=== PATIENT | male | born 1980 | race Two or more races ===

== ENCOUNTER → 2018-10-27 | Outpatient (CLI) | payer OTHER ==
[~2018-10-27] MED LIST: ACE3 PO; ASPI-663 PO; CYC10 PO; DOCU-416 PO; HYDR-653 PO; IBUP-1671 PO; IBUP400T13 PO; KET10 PO; NO RTN MEDS; OXYC-763 PO; PENI-22 PO
--- NOTE | 2018-10-27 09:04 | RADIOLOGY IMAGING REPORT ---
FACILITY: [facility] PATIENT NAME: Marc Edgar : 1980 MR: [id number] V: [id number] EXAM DATE: ORDERING PHYSICIAN: GANESH PITTMAN TECHNOLOGIST: Location: [facility] [place] Patient: Marc Edgar : 1980 Visit/Account:[id number] Date of Sevice: 10/27/2018 TESTICULAR HISTORY: Enlarged right testicle COMPARISON: None. FINDINGS: Testes: Right testicle measures 4.05 x 2.4 x 3.7 cm. The left testicle measures 5.08 x 1.91 x 3.64 c m. Symmetric and unremarkable blood flow documented by color and Duplex Doppler ultrasound. Period Epididymides: There is a large septated cystic structure along the superior aspect right-sided the sc rotal sac measuring approximately 5.2 cm in width and 2.2 cm in AP dimension. This may be within the head epididymis on the right or may be a loculated septated hydrocele. Head epididymis on the left measures 6 mm Blood flow is unremarkable in each epididymis by color Doppler ultrasound. Hydrocele: As above Varicocele: None. IMPRESSION: There is a large septated cystic structure along the superior aspect right side of the scrotal sac me asuring 5.2 x 2.2 cm. This may be within the head the epididymis on the right or may be a loculated septated hydrocele Report Dictated By: Ruma Allen MD at 10/27/2018 8:52 AM Report E-Signed By: Ruma Allen MD at 10/27/2018 9:00 AM WSN:[email or web address]
== END ==
LOC: US 04:24
PROVIDERS: ATTEND Urology
DX: N43.40 Spermatocele of epididymis, unspecified (principal); N50.89 Other specified disorders of the male genital organs
CPT/HCPCS: 76870

== ENCOUNTER 2018-10-30 00:11 | Day surgery (SDC) | payer OTHER ==
--- NOTE | 2018-10-28 00:18 | HISTORY AND PHYSICAL ---
DATE OF ADMISSION: October 30, 2018 CHIEF COMPLAINT Right spermatocele and desiring sterilization. HISTORY OF PRESENT ILLNESS Patient is a 38-year-old male who originally presented to the urology clinic in early October with a several-week history of right testicular swelling. Physical exam revealed this to be a soft mass above the right testis. His urinalysis was normal. The mass measured approximately 5 cm and he had mild discomfort on exam. The patient was also considering bilateral vasectomy. He was but had children and is in a steady relationship. He was given a vas pamphlet, consent and instructions, and set up for a testicular ultrasound. He returned to the clinic on the of this month. His testicular ultrasound confirmed this to be a 5.2 x 2.2 area of septated cystic mass at the head of the right epididymis, consistent with a spermatocele. The films were discussed, and the patient desired surgical excision. After again explaining vasectomy, he also desires permanent sterilization during the concomitant procedure. PAST MEDICAL HISTORY None. PAST SURGICAL HISTORY None. CURRENT MEDICATIONS None. ALLERGIES No known drug allergies. FAMILY HISTORY Noncontributory. REVIEW OF SYSTEMS Patient denies chest pain, shortness of breath, nausea, vomiting, fever, chills, gross hematuria, history of urinary tract infections, kidney stones, or bleeding disorder. PHYSICAL EXAMINATION GENERAL: Patient is a well-developed, well-nourished male in no acute distress. HEENT: Normocephalic, atraumatic. CHEST: Clear to auscultation bilaterally. CARDIOVASCULAR: Regular rate and rhythm. ABDOMEN: Soft, nontender. No masses are palpated. GENITOURINARY: Deferred to the OR. EXTREMITIES: Without clubbing, cyanosis, or edema. NEUROLOGIC: Nonfocal. IMPRESSION A 38-year-old male with a 5 cm spermatocele on the right side, who also currently desires a vasectomy. PLAN We will perform right spermatocelectomy with bilateral vasectomy. [place]
[2018-10-28 16:48] LABS: PLATELET COUNT, AUTOMATED 321 K/uL (150-450)
[~2018-10-30] VITALS: Ht 154.9 cm; Wt 66.7 kg
[~2018-10-30 00:11] MED LIST changes: -DOCU-416 PO; -HYDR-653 PO; -IBUP-1671 PO
[2018-10-30] MEDS ORDERED: LIDOCAINE/SOD BICARB 8.4% SYR ID ONE (13:10)
[2018-10-30] MEDS ORDERED: NORMOSOL R SOLN(*) 1000 ML BAG 1,000 ML IV PRN (13:10)
[2018-10-30] MEDS ORDERED: FAMOTIDINE 20 MG TAB PO ONE (13:10)
[2018-10-30] MEDS ORDERED: MIDAZOLAM 2 MG/2 ML VIAL IVP PRN (13:10)
[2018-10-30] MEDS ORDERED: fentaNYL CITR 100 MCG/2 ML AMP ONE ×2 (13:10→15:10)
[2018-10-30] MEDS ORDERED: ceFAZolin(*) 1 GM VIAL 1 GM in NS(*) 0.9% 100 ML ADDVANT BAG 100 ML IVPB ONE (13:10)
[2018-10-30] MEDS ORDERED: ceFAZolin(*) 1 GM VIAL 1 GM, GENTAMICIN(*) 80 MG/2 ML VIAL 60 MG in NS 0.9% IRRIGATION ... IR ONE (13:10)
[2018-10-30] MEDS ORDERED: LIDOCAINE MPF 1% 5 ML VIAL ONE (13:11)
[2018-10-30] MEDS ORDERED: PROPOFOL EMUL(*) 10MG/ML 20 ML 20 ML ONE (13:11)
[2018-10-30 13:21] VITALS: BP 126/69
[2018-10-30] MEDS ORDERED: ROPIVACAINE 0.2% 20 ML VIAL ONE (13:45)
[2018-10-30] MEDS ORDERED: DEXAMETHASONE SOD 4 MG/ML VIAL ONE (14:11)
[2018-10-30] MEDS ORDERED: ONDANSETRON 4 MG/2 ML VIAL ONE (14:14)
[2018-10-30] MEDS ORDERED: KETOROLAC 30 MG/ML VIAL ONE (15:24)
[2018-10-30 16:10] VITALS: BP 102/66
[2018-10-30 16:12] VITALS: BP 114/73
[2018-10-30] MEDS ORDERED: IBUP-1671 PO (16:32)
[2018-10-30] MEDS ORDERED: HYDR-653 PO (16:32)
[2018-10-30] MEDS ORDERED: DOCU-416 PO (16:34)
--- NOTE | 2018-10-30 16:45 | NUR ---
RN BEDSIDE WITH PT. PT REPORTS READY FOR DISCHARGE. PAIN TOLERABLE. ORTHOSTATIC VITALS WNL. TOLERATING PO INTAKE. ALLOWED PT. TO DRESS. ASSISTED/EDUCATED PT. WITH SCROTAL SUPPORT. PT. ABLE TO AMBULATE TO RESTROOM WITHOUT ISSUES.
[2018-10-30] MEDS ORDERED: APAP/HYDROCODONE 325/5 TAB ONE (16:53)
--- NOTE | 2018-10-30 16:55 | NUR ---
1612 SBAR HAND OFF TO SELF, 1616 ALLOWED TO DRESS TOP HALF WHILE SITTING IN BED, PT D/C'D FROM IV TUBING AT 1630 UPDATED PT'S PARENTS AND KIDS IN WAITING ROOM, NAUSEA RESOLVED 1645 SBAR HANDOFF TO Roni HALL RN
--- NOTE | 2018-10-30 17:00 | NUR ---
PT. GIVEN PO NORCO FOR PAIN MANAGEMENT POST AMBULATION. EDUCATED ON NORCO AND INSTRUCTED ON HOW TO TAKE MEDICATION.
--- NOTE | 2018-10-30 17:10 | NUR ---
DISCHARGE INSTRUCTIONS REVIEWED WITH FAMILY.
--- NOTE | 2018-10-31 01:46 | OPERATIVE REPORT 1 ---
EVENT DATE: October 30, 2018 SURGEON: Isaac Bustillos MD ANESTHESIOLOGIST: Rene Farrar MD ANESTHESIA: General. PREOPERATIVE DIAGNOSIS 1. Right spermatocele. 2. Desiring sterilization. POSTOPERATIVE DIAGNOSIS 1. Right spermatocele. 2. Desiring sterilization. PROCEDURE PERFORMED 1. Right spermatocelectomy. 2. Bilateral vasectomy. ESTIMATED BLOOD LOSS 10 mL. INTRAVENOUS FLUIDS Crystalloid. DRAINS None. COMPLICATIONS None. SPECIMENS Bilateral vas specimens and spermatocele for permanent analysis. CONDITION Patient taken to recovery room awake and in stable condition. STATEMENT OF MEDICAL NECESSITY Patient is a 38-year-old male who had presented with right testicular swelling and was noted to have a 5 x 2 cm spermatocele on physical exam, which was confirmed by ultrasound. Patient also desires permanent sterilization, and after discussion, he has elected to undergo right spermatocelectomy with bilateral vasectomy. The associated risks and benefits were explained, including damage to testes, nerves, adjacent structures, bleeding, infection, postoperative discomfort including post-vas pain syndrome, vasectomy recanalization with vas failure, and need for secondary procedure. Operative consent is signed and on the chart. DESCRIPTION OF PROCEDURE Patient was brought to the operating room after general anesthetic was obtained. He was placed supine on the operating room table and prepped and draped sterilely. At this point, a 3 cm right hemiscrotal mid incision was made from the medium raphe out laterally with the #10 blade knife. This was taken down through the dartos with electrocautery, and the testis was encountered and delivered through the incision with the surrounding tunica vaginalis. The tunica vaginalis was opened and the testis inspected. A small appendix testis was fulgurated. The testis itself appeared normal. There was a large spermatocele involving most of the body and head of the right epididymis. No other abnormalities were noted. At this point, the tunica albuginea between the testis and head of the epididymis was incised, and dissection was taken out in this fascial plane to dissect the spermatocele off the surface of the testis and body of the epididymis. Both sharp and blunt dissection was used. Pinpoint electrocautery was used to control bleeding vessels. The spermatocele was removed and sent for permanent analysis. The bed of dissection on the testis was fulgurated at pinpoint areas to prevent bleeding and where any raw surface was encountered. Following this, the tunica albuginea was reapproximated to replace the epididymis in its normal anatomical position with interrupted 4-0 chromic stitches. At this point, a right vasectomy was performed at approximately 5 cm above the testis. The vas was isolated in the cord structures with a towel clip, and the surrounding investing fascia was removed. The vas was doubly clamped proximally and distally for approximately 1 cm distance. The intervening vas segment was sharply removed and the ends fulgurated with the pinpoint electrocautery inside the lumen. The ends were tied with 2-0 chromic, and fascial interposition was performed on the proximal side. Following this, a cord block with 0.25% ropivacaine was given on the right cord. at this point, the left vasectomy was performed by isolating the vas through the median raphe in the current incision. The vas was grasped with a towel clip. Again, the surrounding adventitial layers were removed down to the bare vas. A 1 cm segment was isolated, clamped proximally and distally. The intervening segment was removed and sent to pathology for analysis. The ends were fulgurated with electrocautery to obliterate the lumen, and then they were tied with 2-0 chromic. A fascial interposition was then performed on the proximal end. At this point, the wound was irrigated with copious amounts of double antibiotic solution. Three orchiopexy stitch was performed on the right side at the 3, 6, and 9 o'clock positions from the tunica albuginea to the intradartos with 4-0 chromic stitches. The first two stitches were placed and then sequentially tied after ensuring the vas and vessels were not twisted. At this point, ropivacaine was given along the skin edge. A deep layer of running 3-0 chromic was used to reapproximate the dartos, and then an interrupted mattress with 3-0 chromic was used to reapproximate the skin edge. A skin adhesive was placed along the incision to complete the case. A sterile dressing and a fluff dressing were applied with a scrotal support. The patient was awakened in the operating room and taken to the recovery area in stable condition. The plan will be to allow Mr. Edgar to be discharged home today on Emmet alternating with Motrin for the first 36 hours. He is also given a stool softener with Colace. We will plan to see him in the urology clinic in approximately four weeks for followup exam and to schedule a semen analysis test in eight to 10 weeks postoperatively. [place]
== END 2018-10-30 16:12 | disposition home or self-care (01) ==
LOC: OR 00:11
PROVIDERS: ATTEND Urology
DX: Z30.2 Encounter for sterilization (principal); N43.40 Spermatocele of epididymis, unspecified
CPT/HCPCS: 36415; 54840; 55250; 81001; 85025; 87088; 88304; J0690; J1100; J1885; J2001; J2250; J2405; J2704; J2795; J3010; J7050; 82310; 82374; 82435; 82565; 82947; 84132; 84295; 84520